=== PATIENT | male | born 1955 | race Caucasian/White ===

== ENCOUNTER 2018-04-18 11:11 | Inpatient (IN) | payer OTHER ==
[~2018-04-18 11:11] MED LIST: PROPOFOL 200 MG INJ
[2018-04-18 12:10] LABS: ADD MAN DIFF? NO
[2018-04-18 12:13] LABS: WHITE BLOOD COUNT 7.6 10^3/ul (4.8-10.8)
[2018-04-18 12:13] LABS: BASOPHILS % 0.4 % (0.0-2.0); EOSINOPHILS % 0.4 % (0.0-7.0); HEMATOCRIT 41.8 % (42.0-52.0); HEMOGLOBIN 14.3 g/dl (14.0-18.0); LYMPHOCYTES # 1.6 10^3/ul (0.8-2.9); LYMPHOCYTES % 20.8 % (15.0-51.0); MEAN CORPUSCULAR HEMOGLOBIN 29.2 pg (29.0-33.0); MEAN CORPUSCULAR HGB CONC 34.2 g/dl (32.0-37.0); MEAN CORPUSCULAR VOLUME 85.3 fl (82.0-101.0); MEAN PLATELET VOLUME 9.1 fl (7.4-10.4); MONOCYTE # 0.7 10^3/ul (0.3-0.9); NEUTROPHIL # 5.3 10^3/ul (1.6-7.5); NEUTROPHILS % 69.1 % (39.0-77.0); PLATELET COUNT 276 10^3/UL (140-415); RED CELL DISTRIBUTION WIDTH 13.8 % (11.5-14.5)
[2018-04-18 12:33] LABS: ALANINE AMINOTRANSFERASE 105 IU/L (13-69); ALBUMIN 3.9 g/dl (3.3-4.9); ALBUMIN/GLOBULIN RATIO 1.21; ALKALINE PHOSPHATASE 110 IU/L (42-121); ANION GAP 14 (8-16); ASPARTATE AMINO TRANSFERASE 106 IU/L (15-46); BILIRUBIN,INDIRECT 0.8 mg/dl (0-1.1); BILIRUBIN,TOTAL 0.8 mg/dl (0.2-1.3); CARBON DIOXIDE 27 mmol/L (21-31); CHLORIDE 97 mmol/L (97-110); GLUCOSE 108 mg/dl (70-220); INR 0.95; PROTIME 12.8 Sec (11.9-14.9); TOTAL PROTEIN 7.1 g/dl (6.1-8.1)
[2018-04-18 12:39] LABS: BLOOD UREA NITROGEN 13 mg/dl (7-20); CALCIUM 9.3 mg/dl (8.4-10.2); CREATININE 0.77 mg/dl (0.61-1.24); POTASSIUM 3.2 mmol/L (3.5-5.1); SODIUM 135 mmol/L (135-144)
[2018-04-18] MEDS: HYDROCODONE/APAP (5/325) TAB PO (12:58)
[2018-04-18 13:05] LABS: PARTIAL THROMBOPLASTIN TIME 24.8 Sec (25.0-35.0)
[2018-04-18] MEDS ORDERED: POLYMYXIN/BACITRACIN 1L IRRIG (13:28)
[2018-04-18] MEDS ORDERED: HYDROmorphONE 2 MG/ML SYG ×2 (13:50→17:23)
[2018-04-18] MEDS ORDERED: LIDOCAINE 2% (SDV) 5 ML INJ (13:58)
[2018-04-18] MEDS ORDERED: MIDAZOLAM 1 MG/ML 2 ML INJ ×2 (13:58→18:13)
[2018-04-18] MEDS ORDERED: PROPOFOL 20 ML (13:58)
[2018-04-18] MEDS ORDERED: PHENYLephrine (100 MCG/ML) 10ML SYG (14:14)
[2018-04-18] MEDS ORDERED: CEFAZOLIN 1 GM INJ (14:29)
[2018-04-18] MEDS ORDERED: SUCCINYLCHOLINE CHLORIDE 100 MG/5 ML SYG IV (14:58)
[2018-04-18] MEDS ORDERED: ROCURONIUM 50 MG INJ ×2 (14:58→16:45)
[2018-04-18] MEDS ORDERED: DEXAMETHASONE 4 MG/ML 1 ML INJ (15:01)
[2018-04-18] MEDS ORDERED: FAMOTIDINE 20 MG INJ (15:01)
[2018-04-18] MEDS ORDERED: ONDANSETRON 4 MG INJ (15:01)
[2018-04-18] MEDS ORDERED: hydrALAzine 20 MG INJ (15:14)
[2018-04-18] MEDS ORDERED: POTASSIUM CHLORIDE 50 ML (15:43)
[2018-04-18] MEDS: LIDOCAINE 1%/EPI 30 ML INJ (15:48)
[2018-04-18] MEDS: THROMBIN 5000 UNIT VIAL (15:49)
[2018-04-18] MEDS ORDERED: PROCHLORPERAZINE 10 MG INJ IV (16:00)
[2018-04-18] MEDS ORDERED: MEPERIDINE 25 MG INJ IV (16:00)
[2018-04-18] MEDS ORDERED: hydrALAzine 20 MG INJ IV (16:00)
[2018-04-18] MEDS ORDERED: HYDROmorphONE 1 MG/5 ML IV SYRINGE IV ×3 (16:00)
[2018-04-18] MEDS ORDERED: ONDANSETRON 4 MG INJ IV ×2 (16:00→18:00)
[2018-04-18] MEDS ORDERED: LABETALOL HCL 20MG INJ IV (16:00)
[2018-04-18] MEDS ORDERED: DIPHENHYDRAMINE 50 MG INJ IV (16:00)
[2018-04-18] MEDS ORDERED: FENTAnyl 50 MCG/ML VIAL IV ×2 (16:00)
[2018-04-18] MEDS ORDERED: ACETAMINOPHEN 1000MG/100ML IV 100 ML (16:07)
[2018-04-18] MEDS: GELATIN SIZE 100 SPONGE (16:20)
[2018-04-18] MEDS ORDERED: THROMBIN 5000 UNIT VIAL ×2 (16:37→16:40)
[2018-04-18] MEDS ORDERED: GELATIN SIZE 100 SPONGE (16:40)
[2018-04-18] MEDS: THROMBIN 5000 UNIT VIAL TOP (16:45)
[2018-04-18] MEDS ORDERED: ALBUMIN HUMAN 5% 250 ML (16:53)
[2018-04-18] MEDS ORDERED: SUGAMMADEX SODIUM 200 MG/2 ML VIAL IV (16:55)
[2018-04-18] MEDS ORDERED: FENTAnyl 50 MCG/ML VIAL (17:49)
[2018-04-18] MEDS: morphine 2 MG INJ IV (18:00)
[2018-04-18] MEDS ORDERED: niCARdipine 50 MG in SOD CHLORIDE 0.9% 480 ML IV (18:00)
[2018-04-18] MEDS ORDERED: morphine 2 MG INJ IV (18:00)
[2018-04-18] MEDS: DEXTROSE 5%-LR 1,000 ML IV (18:25)
[2018-04-18] MEDS ORDERED: ALBUTEROL HFA 8 GM INHALER INH (18:30)
[2018-04-18] MEDS: HYDROmorphONE 1 MG/ML SYG IV ×3 (18:59→23:24)
[2018-04-18] MEDS: HALOPERIDOL 5 MG INJ IV (19:00)
[2018-04-18 19:01] LABS: ADD MAN DIFF? NO
[2018-04-18 19:02] LABS: WHITE BLOOD COUNT 18.9 10^3/ul (4.8-10.8)
[2018-04-18 19:02] LABS: BASOPHILS % 0.2 % (0.0-2.0); HEMATOCRIT 35.6 % (42.0-52.0); HEMOGLOBIN 11.7 g/dl (14.0-18.0); LYMPHOCYTES # 1.4 10^3/ul (0.8-2.9); LYMPHOCYTES % 7.5 % (15.0-51.0); MEAN CORPUSCULAR HGB CONC 32.9 g/dl (32.0-37.0); MEAN CORPUSCULAR VOLUME 88.1 fl (82.0-101.0); MEAN PLATELET VOLUME 9.1 fl (7.4-10.4); MONOCYTE # 0.5 10^3/ul (0.3-0.9); MONOCYTES % 2.8 % (0.0-11.0); NEUTROPHIL # 16.8 10^3/ul (1.6-7.5); PLATELET COUNT 326 10^3/UL (140-415); RED BLOOD COUNT 4.04 10^6/ul (4.70-6.10); RED CELL DISTRIBUTION WIDTH 14.1 % (11.5-14.5)
[2018-04-18 19:22] LABS: ANION GAP 13 (8-16); BLOOD UREA NITROGEN 14 mg/dl (7-20); CARBON DIOXIDE 24 mmol/L (21-31); CHLORIDE 101 mmol/L (97-110); CREATININE 0.82 mg/dl (0.61-1.24); GLUCOSE 238 mg/dl (70-220); POTASSIUM 3.8 mmol/L (3.5-5.1); SODIUM 134 mmol/L (135-144)
[2018-04-18 19:23] LABS: INR 1.02; PROTIME 13.5 Sec (11.9-14.9); PT RATIO 1.1
[2018-04-18 19:33] LABS: CALCIUM 8.3 mg/dl (8.4-10.2)
[2018-04-18] MEDS: FENTAnyl 50 MCG/ML VIAL IV (19:51)
[2018-04-18] MEDS: MIDAZOLAM 1 MG/ML 2 ML INJ IV (19:51)
[2018-04-18] MEDS: DOCUSATE SODIUM 100 MG CAP PO (20:30)
[2018-04-18] MEDS: ATORVASTATIN 10 MG TAB PO (20:30)
[2018-04-18] MEDS: oxyCODONE (CR) 20 MG TAB [oxyCONTIN] PO (20:31)
[2018-04-18] MEDS: ENALAPRIL 10 MG TAB PO (20:31)
[2018-04-18] MEDS: HYDROCODONE/APAP (10/325) TAB PO (21:28)
[2018-04-18] MEDS: CEFAZOLIN 1 GM/50 ML (PMX) 50 ML IVPB (21:32)
[2018-04-19] MEDS: DEXTROSE 5%-LR 1,000 ML IV ×3 (00:25→14:44)
[2018-04-19] MEDS: HYDROCODONE/APAP (10/325) TAB PO ×4 (01:31→23:25)
[2018-04-19] MEDS: HYDROmorphONE 1 MG/ML SYG IV ×8 (02:28→20:22)
[2018-04-19] MEDS: CEFAZOLIN 1 GM/50 ML (PMX) 50 ML IVPB ×3 (05:15→21:48)
[2018-04-19] MEDS: DOCUSATE SODIUM 100 MG CAP PO ×3 (08:49→20:56)
[2018-04-19] MEDS: oxyCODONE (CR) 20 MG TAB [oxyCONTIN] PO ×2 (08:51→20:54)
[2018-04-19] MEDS: ENALAPRIL 10 MG TAB PO ×2 (08:51→20:53)
[2018-04-19] MEDS ORDERED: FLURAZEPAM PO (10:30)
[2018-04-19] MEDS: LORAZEPAM 1 MG TAB PO (11:07)
[2018-04-19] MEDS: CYCLOBENZAPRINE 10 MG TAB PO ×2 (13:14→21:48)
[2018-04-19] MEDS: ATORVASTATIN 10 MG TAB PO (20:53)
[2018-04-20] MEDS: DEXTROSE 5%-LR 1,000 ML IV ×5 (01:31→22:15)
[2018-04-20] MEDS: CEFAZOLIN 1 GM/50 ML (PMX) 50 ML IVPB ×3 (05:36→22:13)
[2018-04-20] MEDS: HYDROmorphONE 1 MG/ML SYG IV ×3 (05:39→15:07)
[2018-04-20] MEDS: HYDROCODONE/APAP (10/325) TAB PO (07:48)
[2018-04-20] MEDS: CYCLOBENZAPRINE 10 MG TAB PO ×3 (08:30→20:22)
[2018-04-20] MEDS: DOCUSATE SODIUM 100 MG CAP PO ×2 (08:30→20:22)
[2018-04-20] MEDS: ENALAPRIL 10 MG TAB PO ×4 (08:30→22:14)
[2018-04-20] MEDS: oxyCODONE (CR) 20 MG TAB [oxyCONTIN] PO ×2 (08:31→20:23)
[2018-04-20 10:35] LABS: HEMATOCRIT 29.9 % (42.0-52.0); HEMOGLOBIN 9.6 g/dl (14.0-18.0)
[2018-04-20] MEDS: ATORVASTATIN 10 MG TAB PO (20:22)
[2018-04-21] MEDS: LORAZEPAM 1 MG TAB PO ×2 (00:19→21:55)
[2018-04-21] MEDS: HYDROCODONE/APAP (10/325) TAB PO ×3 (00:19→21:20)
[2018-04-21] MEDS: DEXTROSE 5%-LR 1,000 ML IV ×3 (07:04→21:17)
[2018-04-21] MEDS: oxyCODONE (CR) 20 MG TAB [oxyCONTIN] PO ×2 (09:00→21:55)
[2018-04-21] MEDS: CYCLOBENZAPRINE 10 MG TAB PO ×3 (09:22→21:55)
[2018-04-21] MEDS: HYDROmorphONE 1 MG/ML SYG IV ×4 (09:22→22:50)
[2018-04-21] MEDS: ENALAPRIL 10 MG TAB PO ×2 (09:22→21:19)
[2018-04-21] MEDS: DOCUSATE SODIUM 100 MG CAP PO ×2 (09:23→21:17)
[2018-04-21] MEDS: ATORVASTATIN 10 MG TAB PO (21:17)
[2018-04-22] MEDS: HYDROmorphONE 1 MG/ML SYG IV ×6 (01:10→22:49)
[2018-04-22] MEDS: DEXTROSE 5%-LR 1,000 ML IV ×4 (03:58→22:59)
[2018-04-22] MEDS: oxyCODONE (CR) 20 MG TAB [oxyCONTIN] PO ×2 (08:20→20:43)
[2018-04-22] MEDS: DOCUSATE SODIUM 100 MG CAP PO ×2 (08:21→20:42)
[2018-04-22] MEDS: CYCLOBENZAPRINE 10 MG TAB PO ×3 (08:22→20:46)
[2018-04-22] MEDS: ENALAPRIL 10 MG TAB PO ×2 (08:22→22:55)
[2018-04-22] MEDS: ATORVASTATIN 10 MG TAB PO (20:42)
[2018-04-22] MEDS: HYDROmorphONE 4 MG TAB PO (20:44)
[2018-04-22] MEDS: LORAZEPAM 1 MG TAB PO (22:54)
[2018-04-23] MEDS: DEXTROSE 5%-LR 1,000 ML IV ×3 (01:36→17:54)
[2018-04-23] MEDS: HYDROmorphONE 1 MG/ML SYG IV ×4 (05:50→22:24)
[2018-04-23 06:33] LABS: ADD MAN DIFF? NO
[2018-04-23 06:39] LABS: WHITE BLOOD COUNT 7.7 10^3/ul (4.8-10.8)
[2018-04-23 06:39] LABS: BASOPHILS % 0.3 % (0.0-2.0); EOSINOPHILS # 0.2 10^3/ul (0.0-0.5); EOSINOPHILS % 2.7 % (0.0-7.0); HEMATOCRIT 27.4 % (42.0-52.0); HEMOGLOBIN 9.2 g/dl (14.0-18.0); LYMPHOCYTES # 1.5 10^3/ul (0.8-2.9); LYMPHOCYTES % 19.1 % (15.0-51.0); MEAN CORPUSCULAR HEMOGLOBIN 29.8 pg (29.0-33.0); MEAN CORPUSCULAR HGB CONC 33.6 g/dl (32.0-37.0); MEAN CORPUSCULAR VOLUME 88.7 fl (82.0-101.0); MEAN PLATELET VOLUME 9.2 fl (7.4-10.4); MONOCYTE # 0.7 10^3/ul (0.3-0.9); MONOCYTES % 9.5 % (0.0-11.0); NEUTROPHIL # 5.3 10^3/ul (1.6-7.5); NEUTROPHILS % 68.1 % (39.0-77.0); PLATELET COUNT 262 10^3/UL (140-415); RED BLOOD COUNT 3.09 10^6/ul (4.70-6.10); RED CELL DISTRIBUTION WIDTH 13.8 % (11.5-14.5)
[2018-04-23 07:18] LABS: ANION GAP 11 (8-16); BLOOD UREA NITROGEN 8 mg/dl (7-20); CALCIUM 8.2 mg/dl (8.4-10.2); CARBON DIOXIDE 29 mmol/L (21-31); CHLORIDE 102 mmol/L (97-110); GLUCOSE 118 mg/dl (70-220); POTASSIUM 3.9 mmol/L (3.5-5.1); SODIUM 138 mmol/L (135-144)
[2018-04-23 07:36] LABS: ADD MAN DIFF? NO
[2018-04-23 07:39] LABS: WHITE BLOOD COUNT 7.4 10^3/ul (4.8-10.8)
[2018-04-23 07:39] LABS: BASOPHILS % 0.1 % (0.0-2.0); EOSINOPHILS # 0.2 10^3/ul (0.0-0.5); EOSINOPHILS % 2.6 % (0.0-7.0); HEMATOCRIT 27.1 % (42.0-52.0); LYMPHOCYTES # 1.3 10^3/ul (0.8-2.9); LYMPHOCYTES % 17.5 % (15.0-51.0); MEAN CORPUSCULAR HEMOGLOBIN 29.5 pg (29.0-33.0); MEAN CORPUSCULAR HGB CONC 33.2 g/dl (32.0-37.0); MEAN CORPUSCULAR VOLUME 88.9 fl (82.0-101.0); MEAN PLATELET VOLUME 9.1 fl (7.4-10.4); MONOCYTE # 0.7 10^3/ul (0.3-0.9); MONOCYTES % 8.9 % (0.0-11.0); NEUTROPHIL # 5.3 10^3/ul (1.6-7.5); NEUTROPHILS % 70.6 % (39.0-77.0); PLATELET COUNT 253 10^3/UL (140-415); RED BLOOD COUNT 3.05 10^6/ul (4.70-6.10); RED CELL DISTRIBUTION WIDTH 14.1 % (11.5-14.5)
[2018-04-23] MEDS: DOCUSATE SODIUM 100 MG CAP PO ×2 (08:18→20:51)
[2018-04-23] MEDS: CYCLOBENZAPRINE 10 MG TAB PO ×3 (08:18→20:52)
[2018-04-23] MEDS: oxyCODONE (CR) 20 MG TAB [oxyCONTIN] PO ×2 (08:18→20:52)
[2018-04-23] MEDS: ENALAPRIL 10 MG TAB PO ×2 (08:19→20:51)
[2018-04-23] MEDS: SENNA/DOCUSATE NA (8.6MG/50MG) TAB PO (17:53)
[2018-04-23] MEDS: ATORVASTATIN 10 MG TAB PO (20:51)
[2018-04-24] MEDS: HYDROmorphONE 4 MG TAB PO ×5 (01:01→21:23)
[2018-04-24] MEDS: DEXTROSE 5%-LR 1,000 ML IV ×3 (01:03→10:24)
[2018-04-24] MEDS: HYDROmorphONE 1 MG/ML SYG IV ×6 (02:34→22:33)
[2018-04-24] MEDS: SENNA/DOCUSATE NA (8.6MG/50MG) TAB PO ×2 (07:55→18:24)
[2018-04-24] MEDS: oxyCODONE (CR) 20 MG TAB [oxyCONTIN] PO ×2 (09:00→22:33)
[2018-04-24] MEDS: ENALAPRIL 10 MG TAB PO ×2 (09:06→21:00)
[2018-04-24] MEDS: CYCLOBENZAPRINE 10 MG TAB PO ×3 (09:06→21:22)
[2018-04-24] MEDS: DOCUSATE SODIUM 100 MG CAP PO ×2 (09:06→21:20)
[2018-04-24] MEDS: ATORVASTATIN 10 MG TAB PO (21:21)
[2018-04-24] MEDS: METOPROLOL 25 MG TAB PO (21:24)
[2018-04-25] MEDS: HYDROmorphONE 4 MG TAB PO (01:28)
[2018-04-25] MEDS: HYDROmorphONE 1 MG/ML SYG IV ×5 (03:31→22:18)
[2018-04-25] MEDS: METOPROLOL 25 MG TAB PO ×2 (08:36→20:52)
[2018-04-25] MEDS: CYCLOBENZAPRINE 10 MG TAB PO ×3 (08:36→20:52)
[2018-04-25] MEDS: SENNA/DOCUSATE NA (8.6MG/50MG) TAB PO ×2 (08:37→18:19)
[2018-04-25] MEDS: DOCUSATE SODIUM 100 MG CAP PO ×2 (08:37→20:52)
[2018-04-25] MEDS: ENALAPRIL 10 MG TAB PO ×2 (08:37→20:55)
[2018-04-25 09:12] LABS: ADD MAN DIFF? NO
[2018-04-25 09:15] LABS: BASOPHILS % 0.3 % (0.0-2.0); EOSINOPHILS # 0.3 10^3/ul (0.0-0.5); EOSINOPHILS % 3.2 % (0.0-7.0); HEMATOCRIT 30.3 % (42.0-52.0); LYMPHOCYTES % 19.3 % (15.0-51.0); MEAN CORPUSCULAR HEMOGLOBIN 29.5 pg (29.0-33.0); MEAN CORPUSCULAR VOLUME 89.4 fl (82.0-101.0); MONOCYTES % 9.9 % (0.0-11.0); NEUTROPHILS % 66.8 % (39.0-77.0); PLATELET COUNT 375 10^3/UL (140-415); RED BLOOD COUNT 3.39 10^6/ul (4.70-6.10); RED CELL DISTRIBUTION WIDTH 14.3 % (11.5-14.5)
[2018-04-25 09:15] LABS: WHITE BLOOD COUNT 10.5 10^3/ul (4.8-10.8)
[2018-04-25 09:58] LABS: ANION GAP 12 (8-16); BLOOD UREA NITROGEN 7 mg/dl (7-20); CALCIUM 8.4 mg/dl (8.4-10.2); CARBON DIOXIDE 29 mmol/L (21-31); CHLORIDE 100 mmol/L (97-110); CREATININE 0.66 mg/dl (0.61-1.24); GLUCOSE 100 mg/dl (70-220); POTASSIUM 4.1 mmol/L (3.5-5.1); SODIUM 137 mmol/L (135-144)
[2018-04-25] MEDS: oxyCODONE (CR) 20 MG TAB [oxyCONTIN] PO ×2 (09:58→20:56)
[2018-04-25] MEDS: ATORVASTATIN 10 MG TAB PO (20:51)
[2018-04-25] MEDS: LORAZEPAM 1 MG TAB PO (22:23)
[2018-04-26] MEDS: HYDROmorphONE 1 MG/ML SYG IV ×5 (02:16→19:52)
[2018-04-26 07:13] LABS: ADD MAN DIFF? NO
[2018-04-26 07:16] LABS: BASOPHILS % 0.2 % (0.0-2.0); EOSINOPHILS # 0.3 10^3/ul (0.0-0.5); EOSINOPHILS % 3.2 % (0.0-7.0); HEMATOCRIT 26.3 % (42.0-52.0); HEMOGLOBIN 8.8 g/dl (14.0-18.0); LYMPHOCYTES # 1.7 10^3/ul (0.8-2.9); LYMPHOCYTES % 20.8 % (15.0-51.0); MEAN CORPUSCULAR HEMOGLOBIN 29.5 pg (29.0-33.0); MEAN CORPUSCULAR HGB CONC 33.5 g/dl (32.0-37.0); MEAN CORPUSCULAR VOLUME 88.3 fl (82.0-101.0); MONOCYTE # 0.7 10^3/ul (0.3-0.9); MONOCYTES % 8.8 % (0.0-11.0); NEUTROPHIL # 5.4 10^3/ul (1.6-7.5); NEUTROPHILS % 66.1 % (39.0-77.0); PLATELET COUNT 313 10^3/UL (140-415); RED BLOOD COUNT 2.98 10^6/ul (4.70-6.10); RED CELL DISTRIBUTION WIDTH 14.4 % (11.5-14.5)
[2018-04-26 07:16] LABS: WHITE BLOOD COUNT 8.2 10^3/ul (4.8-10.8)
[2018-04-26 07:39] LABS: ANION GAP 12 (8-16); BLOOD UREA NITROGEN 11 mg/dl (7-20); CALCIUM 8.1 mg/dl (8.4-10.2); CARBON DIOXIDE 29 mmol/L (21-31); CHLORIDE 99 mmol/L (97-110); CREATININE 0.74 mg/dl (0.61-1.24); GLUCOSE 103 mg/dl (70-220); POTASSIUM 3.7 mmol/L (3.5-5.1); SODIUM 136 mmol/L (135-144)
[2018-04-26] MEDS: CYCLOBENZAPRINE 10 MG TAB PO ×3 (09:04→21:08)
[2018-04-26] MEDS: SENNA/DOCUSATE NA (8.6MG/50MG) TAB PO ×2 (09:04→18:37)
[2018-04-26] MEDS: DOCUSATE SODIUM 100 MG CAP PO ×2 (09:04→21:07)
[2018-04-26] MEDS: oxyCODONE (CR) 20 MG TAB [oxyCONTIN] PO ×2 (09:05→21:08)
[2018-04-26] MEDS: METOPROLOL 25 MG TAB PO ×2 (09:07→21:00)
[2018-04-26] MEDS: ENALAPRIL 5 MG TAB PO ×2 (09:28→21:09)
[2018-04-26] MEDS: FERROUS SULFATE (EC) 325 MG TAB PO (10:47)
[2018-04-26] MEDS: MAGNESIUM HYDROXIDE 30ML CUP PO (19:52)
[2018-04-26] MEDS: ATORVASTATIN 10 MG TAB PO (21:10)
[2018-04-26] MEDS: HYDROmorphONE 4 MG TAB PO (22:08)
[2018-04-26] MEDS: LORAZEPAM 1 MG TAB PO (22:08)
[2018-04-27] MEDS: HYDROmorphONE 1 MG/ML SYG IV ×2 (01:11→08:29)
[2018-04-27] MEDS: LORAZEPAM 1 MG TAB PO (03:24)
[2018-04-27] MEDS: HYDROmorphONE 4 MG TAB PO ×3 (03:24→18:10)
[2018-04-27] MEDS: oxyCODONE (CR) 20 MG TAB [oxyCONTIN] PO ×2 (08:29→21:39)
[2018-04-27] MEDS: CYCLOBENZAPRINE 10 MG TAB PO ×3 (08:29→21:39)
[2018-04-27] MEDS: SENNA/DOCUSATE NA (8.6MG/50MG) TAB PO ×2 (08:30→21:40)
[2018-04-27] MEDS: DOCUSATE SODIUM 100 MG CAP PO ×2 (08:30→21:41)
[2018-04-27] MEDS: FERROUS SULFATE (EC) 325 MG TAB PO (08:30)
[2018-04-27] MEDS: METOPROLOL 25 MG TAB PO ×2 (08:31→21:40)
[2018-04-27] MEDS: ENALAPRIL 5 MG TAB PO ×2 (08:32→21:39)
[2018-04-27] MEDS: DIPHENHYDRAMINE 50 MG INJ IV ×3 (12:03→23:15)
[2018-04-27] MEDS ORDERED: VANCOMYCIN IV PER PHARMACY XX (14:30)
[2018-04-27] MEDS ORDERED: CEFEPIME 1GM/50 ML (PMX) 50 ML IVPB (16:00)
[2018-04-27] MEDS: VANCOMYCIN 2 GM in SOD CHLORIDE 0.9% 500 ML IVPB (16:15)
[2018-04-27] MEDS: ATORVASTATIN 10 MG TAB PO (21:40)
[2018-04-27] MEDS: CEFEPIME 1GM/50 ML (PMX) 50 ML IVPB (21:41)
[2018-04-27] MEDS: HYDROCORTISONE 100 MG INJ IV (23:14)
[2018-04-28] MEDS ORDERED: VANCOMYCIN 1.25 GM in SOD CHLORIDE 0.9% 250 ML IVPB (01:00)
[2018-04-28 06:48] LABS: ALANINE AMINOTRANSFERASE 35 IU/L (13-69); ALBUMIN 2.9 g/dl (3.3-4.9); ALKALINE PHOSPHATASE 102 IU/L (42-121); ANION GAP 11 (8-16); ASPARTATE AMINO TRANSFERASE 20 IU/L (15-46); BILIRUBIN,INDIRECT 0.4 mg/dl (0-1.1); BILIRUBIN,TOTAL 0.4 mg/dl (0.2-1.3); BLOOD UREA NITROGEN 12 mg/dl (7-20); CALCIUM 8.2 mg/dl (8.4-10.2); CARBON DIOXIDE 28 mmol/L (21-31); CHLORIDE 101 mmol/L (97-110); CREATININE 0.68 mg/dl (0.61-1.24); GLUCOSE 140 mg/dl (70-220); POTASSIUM 4.5 mmol/L (3.5-5.1); SODIUM 135 mmol/L (135-144); TOTAL PROTEIN 5.8 g/dl (6.1-8.1)
[2018-04-28] MEDS: CYCLOBENZAPRINE 10 MG TAB PO ×3 (08:47→21:02)
[2018-04-28] MEDS: DIPHENHYDRAMINE 50 MG INJ IV (08:47)
[2018-04-28] MEDS: FERROUS SULFATE (EC) 325 MG TAB PO (08:47)
[2018-04-28] MEDS: SENNA/DOCUSATE NA (8.6MG/50MG) TAB PO ×2 (08:48→21:01)
[2018-04-28] MEDS: oxyCODONE (CR) 20 MG TAB [oxyCONTIN] PO ×2 (08:49→21:03)
[2018-04-28] MEDS: ENALAPRIL 5 MG TAB PO ×2 (08:49→21:02)
[2018-04-28] MEDS: METOPROLOL 25 MG TAB PO ×2 (08:51→21:03)
[2018-04-28] MEDS: DOCUSATE SODIUM 100 MG CAP PO ×2 (08:52→21:02)
[2018-04-28] MEDS: HYDROmorphONE 4 MG TAB PO ×3 (12:20→22:39)
[2018-04-28] MEDS: LORATADINE 10 MG TAB PO (14:58)
[2018-04-28 15:10] LABS: ADD MAN DIFF? NO
[2018-04-28 15:15] LABS: BASOPHILS % 0.3 % (0.0-2.0); EOSINOPHILS # 0.5 10^3/ul (0.0-0.5); EOSINOPHILS % 4.7 % (0.0-7.0); HEMATOCRIT 31.2 % (42.0-52.0); HEMOGLOBIN 10.2 g/dl (14.0-18.0); LYMPHOCYTES # 1.8 10^3/ul (0.8-2.9); LYMPHOCYTES % 18.8 % (15.0-51.0); MEAN CORPUSCULAR HEMOGLOBIN 29.4 pg (29.0-33.0); MEAN CORPUSCULAR HGB CONC 32.7 g/dl (32.0-37.0); MEAN CORPUSCULAR VOLUME 89.9 fl (82.0-101.0); MEAN PLATELET VOLUME 8.6 fl (7.4-10.4); MONOCYTE # 0.7 10^3/ul (0.3-0.9); MONOCYTES % 7.6 % (0.0-11.0); NEUTROPHIL # 6.5 10^3/ul (1.6-7.5); NEUTROPHILS % 68.2 % (39.0-77.0); PLATELET COUNT 428 10^3/UL (140-415); RED BLOOD COUNT 3.47 10^6/ul (4.70-6.10); RED CELL DISTRIBUTION WIDTH 14.5 % (11.5-14.5)
[2018-04-28 15:15] LABS: WHITE BLOOD COUNT 9.6 10^3/ul (4.8-10.8)
[2018-04-28] MEDS: ATORVASTATIN 10 MG TAB PO (21:02)
[2018-04-28] MEDS: DIPHENHYDRAMINE 25 MG CAP PO (21:06)
[2018-04-28] MEDS: LORAZEPAM 1 MG TAB PO (21:57)
[2018-04-29] MEDS: HYDROmorphONE 4 MG TAB PO ×3 (04:40→14:50)
[2018-04-29 05:12] LABS: ADD MAN DIFF? NO
[2018-04-29 05:19] LABS: BASOPHILS % 0.5 % (0.0-2.0); EOSINOPHILS # 0.5 10^3/ul (0.0-0.5); EOSINOPHILS % 5.9 % (0.0-7.0); HEMATOCRIT 29.3 % (42.0-52.0); HEMOGLOBIN 9.6 g/dl (14.0-18.0); LYMPHOCYTES # 1.8 10^3/ul (0.8-2.9); LYMPHOCYTES % 23.4 % (15.0-51.0); MEAN CORPUSCULAR HEMOGLOBIN 29.2 pg (29.0-33.0); MEAN CORPUSCULAR HGB CONC 32.8 g/dl (32.0-37.0); MEAN CORPUSCULAR VOLUME 89.1 fl (82.0-101.0); MEAN PLATELET VOLUME 8.7 fl (7.4-10.4); MONOCYTE # 0.6 10^3/ul (0.3-0.9); MONOCYTES % 8.1 % (0.0-11.0); NEUTROPHIL # 4.8 10^3/ul (1.6-7.5); NEUTROPHILS % 61.5 % (39.0-77.0); PLATELET COUNT 390 10^3/UL (140-415); RED BLOOD COUNT 3.29 10^6/ul (4.70-6.10); RED CELL DISTRIBUTION WIDTH 14.4 % (11.5-14.5)
[2018-04-29 05:19] LABS: WHITE BLOOD COUNT 7.9 10^3/ul (4.8-10.8)
[2018-04-29 05:50] LABS: ANION GAP 9 (8-16); BLOOD UREA NITROGEN 12 mg/dl (7-20); CARBON DIOXIDE 29 mmol/L (21-31); CHLORIDE 103 mmol/L (97-110); GLUCOSE 94 mg/dl (70-220); SODIUM 137 mmol/L (135-144)
[2018-04-29] MEDS: DIPHENHYDRAMINE 25 MG CAP PO ×2 (08:44→17:59)
[2018-04-29] MEDS: CYCLOBENZAPRINE 10 MG TAB PO ×3 (08:46→21:36)
[2018-04-29] MEDS: LORATADINE 10 MG TAB PO (08:46)
[2018-04-29] MEDS: SENNA/DOCUSATE NA (8.6MG/50MG) TAB PO ×2 (08:46→21:36)
[2018-04-29] MEDS: FERROUS SULFATE (EC) 325 MG TAB PO (08:46)
[2018-04-29] MEDS: ENALAPRIL 5 MG TAB PO ×2 (08:47→21:37)
[2018-04-29] MEDS: DOCUSATE SODIUM 100 MG CAP PO ×2 (08:47→21:35)
[2018-04-29] MEDS: METOPROLOL 25 MG TAB PO ×2 (08:48→21:38)
[2018-04-29] MEDS: oxyCODONE (CR) 20 MG TAB [oxyCONTIN] PO ×2 (11:00→21:36)
[2018-04-29] MEDS: TRIMETHOPRIM/SULFAMETHOX (DS) TAB PO ×2 (12:24→21:36)
[2018-04-29] MEDS: MAGNESIUM HYDROXIDE 30ML CUP PO (13:09)
[2018-04-29] MEDS: SODIUM HYPOCHLORITE 0.125% 473 ML BTL IRR ×2 (15:00→21:34)
[2018-04-29] MEDS: ATORVASTATIN 10 MG TAB PO (21:35)
[2018-04-29] MEDS: MUPIROCIN 2% 22 GM OINT TOP (21:35)
[2018-04-29] MEDS: LORAZEPAM 1 MG TAB PO (23:11)
[2018-04-30] MEDS: HYDROmorphONE 4 MG TAB PO ×5 (03:15→23:33)
[2018-04-30] MEDS: LORAZEPAM 1 MG TAB PO ×2 (05:27→23:33)
[2018-04-30 06:08] LABS: ADD MAN DIFF? NO
[2018-04-30 06:11] LABS: WHITE BLOOD COUNT 7.9 10^3/ul (4.8-10.8)
[2018-04-30 06:11] LABS: BASOPHILS % 0.4 % (0.0-2.0); EOSINOPHILS # 0.5 10^3/ul (0.0-0.5); EOSINOPHILS % 6.3 % (0.0-7.0); HEMATOCRIT 27.3 % (42.0-52.0); LYMPHOCYTES # 1.9 10^3/ul (0.8-2.9); LYMPHOCYTES % 23.9 % (15.0-51.0); MEAN CORPUSCULAR HEMOGLOBIN 29.3 pg (29.0-33.0); MEAN CORPUSCULAR VOLUME 88.9 fl (82.0-101.0); MEAN PLATELET VOLUME 8.8 fl (7.4-10.4); MONOCYTE # 0.7 10^3/ul (0.3-0.9); MONOCYTES % 8.7 % (0.0-11.0); NEUTROPHIL # 4.8 10^3/ul (1.6-7.5); NEUTROPHILS % 60.1 % (39.0-77.0); PLATELET COUNT 356 10^3/UL (140-415); RED BLOOD COUNT 3.07 10^6/ul (4.70-6.10); RED CELL DISTRIBUTION WIDTH 14.5 % (11.5-14.5)
[2018-04-30 06:56] LABS: ANION GAP 12 (8-16); BLOOD UREA NITROGEN 11 mg/dl (7-20); CALCIUM 7.8 mg/dl (8.4-10.2); CARBON DIOXIDE 30 mmol/L (21-31); CHLORIDE 98 mmol/L (97-110); CREATININE 0.81 mg/dl (0.61-1.24); GLUCOSE 118 mg/dl (70-220); POTASSIUM 3.8 mmol/L (3.5-5.1); SODIUM 136 mmol/L (135-144)
[2018-04-30] MEDS: SODIUM HYPOCHLORITE 0.125% 473 ML BTL IRR (09:04)
[2018-04-30] MEDS: MUPIROCIN 2% 22 GM OINT TOP ×2 (09:04→21:09)
[2018-04-30] MEDS: DOCUSATE SODIUM 100 MG CAP PO ×2 (09:06→21:04)
[2018-04-30] MEDS: FERROUS SULFATE (EC) 325 MG TAB PO (09:07)
[2018-04-30] MEDS: CYCLOBENZAPRINE 10 MG TAB PO ×3 (09:07→21:07)
[2018-04-30] MEDS: oxyCODONE (CR) 20 MG TAB [oxyCONTIN] PO ×2 (09:07→21:09)
[2018-04-30] MEDS: TRIMETHOPRIM/SULFAMETHOX (DS) TAB PO ×2 (09:07→21:04)
[2018-04-30] MEDS: SENNA/DOCUSATE NA (8.6MG/50MG) TAB PO ×2 (09:07→21:04)
[2018-04-30] MEDS: LORATADINE 10 MG TAB PO (09:07)
[2018-04-30] MEDS: ENALAPRIL 5 MG TAB PO ×2 (09:08→21:07)
[2018-04-30] MEDS: METOPROLOL 25 MG TAB PO ×2 (09:08→21:06)
[2018-04-30] MEDS: DIPHENHYDRAMINE 25 MG CAP PO (17:37)
[2018-04-30] MEDS: ATORVASTATIN 10 MG TAB PO (21:06)
[2018-05-01] MEDS: NA PHOSPHATE/BIPHOS 133 ML ENEMA PR (00:11)
[2018-05-01] MEDS: HYDROCODONE/APAP (10/325) TAB PO ×5 (02:57→23:06)
[2018-05-01] MEDS: HYDROmorphONE 4 MG TAB PO ×2 (06:00→14:41)
[2018-05-01] MEDS: LORAZEPAM 1 MG TAB PO ×2 (06:00→23:06)
[2018-05-01] MEDS: FERROUS SULFATE (EC) 325 MG TAB PO (08:36)
[2018-05-01] MEDS: SENNA/DOCUSATE NA (8.6MG/50MG) TAB PO ×2 (08:36→21:21)
[2018-05-01] MEDS: DOCUSATE SODIUM 100 MG CAP PO ×2 (08:36→21:20)
[2018-05-01] MEDS: METOPROLOL 25 MG TAB PO ×2 (08:36→21:24)
[2018-05-01] MEDS: CYCLOBENZAPRINE 10 MG TAB PO ×3 (08:36→21:25)
[2018-05-01] MEDS: LORATADINE 10 MG TAB PO (08:36)
[2018-05-01] MEDS: TRIMETHOPRIM/SULFAMETHOX (DS) TAB PO ×2 (08:36→21:24)
[2018-05-01] MEDS: ENALAPRIL 5 MG TAB PO ×2 (08:37→21:24)
[2018-05-01] MEDS: oxyCODONE (CR) 20 MG TAB [oxyCONTIN] PO ×2 (08:37→21:25)
[2018-05-01] MEDS: SODIUM HYPOCHLORITE 0.125% 473 ML BTL IRR (08:37)
[2018-05-01] MEDS: MUPIROCIN 2% 22 GM OINT TOP ×2 (08:38→21:28)
[2018-05-01] MEDS: ATORVASTATIN 10 MG TAB PO (21:25)
[2018-05-02] MEDS: LORAZEPAM 1 MG TAB PO ×2 (03:23→22:17)
[2018-05-02] MEDS: HYDROCODONE/APAP (10/325) TAB PO ×5 (03:23→22:16)
[2018-05-02] MEDS: oxyCODONE (CR) 20 MG TAB [oxyCONTIN] PO ×3 (09:37→20:52)
[2018-05-02] MEDS: SENNA/DOCUSATE NA (8.6MG/50MG) TAB PO ×2 (09:37→20:52)
[2018-05-02] MEDS: METOPROLOL 25 MG TAB PO ×3 (09:38→20:52)
[2018-05-02] MEDS: DOCUSATE SODIUM 100 MG CAP PO ×2 (09:38→20:51)
[2018-05-02] MEDS: CYCLOBENZAPRINE 10 MG TAB PO ×3 (09:38→20:51)
[2018-05-02] MEDS: LORATADINE 10 MG TAB PO (09:38)
[2018-05-02] MEDS: TRIMETHOPRIM/SULFAMETHOX (DS) TAB PO ×2 (09:38→20:50)
[2018-05-02] MEDS: FERROUS SULFATE (EC) 325 MG TAB PO (09:38)
[2018-05-02] MEDS: MUPIROCIN 2% 22 GM OINT TOP ×2 (12:14→20:52)
[2018-05-02] MEDS: ENALAPRIL 5 MG TAB PO ×2 (12:14→20:52)
[2018-05-02] MEDS: SODIUM HYPOCHLORITE 0.125% 473 ML BTL IRR (12:26)
[2018-05-02] MEDS: ATORVASTATIN 10 MG TAB PO (20:51)
[2018-05-02] MEDS: HYDROmorphONE 4 MG TAB PO (20:53)
[2018-05-03] MEDS: HYDROmorphONE 4 MG TAB PO ×3 (03:42→22:13)
[2018-05-03 06:58] LABS: CREATININE 0.98 mg/dl (0.61-1.24)
[2018-05-03 06:58] LABS: BLOOD UREA NITROGEN 13 mg/dl (7-20)
[2018-05-03] MEDS: TRIMETHOPRIM/SULFAMETHOX (DS) TAB PO ×2 (07:49→20:33)
[2018-05-03] MEDS: CYCLOBENZAPRINE 10 MG TAB PO ×3 (07:49→20:35)
[2018-05-03] MEDS: SENNA/DOCUSATE NA (8.6MG/50MG) TAB PO ×2 (07:50→20:33)
[2018-05-03] MEDS: ENALAPRIL 5 MG TAB PO ×2 (07:50→20:34)
[2018-05-03] MEDS: oxyCODONE (CR) 20 MG TAB [oxyCONTIN] PO ×2 (07:50→20:35)
[2018-05-03] MEDS: LORATADINE 10 MG TAB PO (07:51)
[2018-05-03] MEDS: METOPROLOL 25 MG TAB PO ×2 (07:51→20:35)
[2018-05-03] MEDS: DOCUSATE SODIUM 100 MG CAP PO ×2 (07:51→20:33)
[2018-05-03] MEDS: FERROUS SULFATE (EC) 325 MG TAB PO (07:51)
[2018-05-03] MEDS: MUPIROCIN 2% 22 GM OINT TOP ×2 (07:52→20:36)
[2018-05-03] MEDS: SODIUM HYPOCHLORITE 0.125% 473 ML BTL IRR (07:52)
[2018-05-03] MEDS: HYDROCODONE/APAP (10/325) TAB PO ×3 (09:16→23:18)
[2018-05-03] MEDS: MAGNESIUM HYDROXIDE 30ML CUP PO (17:24)
[2018-05-03] MEDS: BISACODYL 10 MG SUPP PR (17:56)
[2018-05-03] MEDS: ATORVASTATIN 10 MG TAB PO (20:33)
[2018-05-03] MEDS: DIPHENHYDRAMINE 25 MG CAP PO (22:13)
[2018-05-03] MEDS: LORAZEPAM 1 MG TAB PO (23:18)
[2018-05-04] MEDS: LORAZEPAM 1 MG TAB PO ×2 (04:51→22:56)
[2018-05-04] MEDS: HYDROCODONE/APAP (10/325) TAB PO ×3 (04:51→20:12)
[2018-05-04] MEDS: TRIMETHOPRIM/SULFAMETHOX (DS) TAB PO ×2 (08:27→20:11)
[2018-05-04] MEDS: FERROUS SULFATE (EC) 325 MG TAB PO (08:27)
[2018-05-04] MEDS: CYCLOBENZAPRINE 10 MG TAB PO ×3 (08:27→20:11)
[2018-05-04] MEDS: oxyCODONE (CR) 20 MG TAB [oxyCONTIN] PO ×2 (08:27→20:12)
[2018-05-04] MEDS: SENNA/DOCUSATE NA (8.6MG/50MG) TAB PO ×2 (08:27→20:12)
[2018-05-04] MEDS: HYDROmorphONE 4 MG TAB PO ×3 (08:27→18:37)
[2018-05-04] MEDS: LORATADINE 10 MG TAB PO (08:27)
[2018-05-04] MEDS: DOCUSATE SODIUM 100 MG CAP PO ×2 (08:27→20:11)
[2018-05-04] MEDS: METOPROLOL 25 MG TAB PO ×2 (08:28→20:12)
[2018-05-04] MEDS: ENALAPRIL 5 MG TAB PO ×2 (08:28→20:12)
[2018-05-04] MEDS: SODIUM HYPOCHLORITE 0.125% 473 ML BTL IRR (08:28)
[2018-05-04] MEDS: MUPIROCIN 2% 22 GM OINT TOP ×2 (08:28→20:13)
[2018-05-04] MEDS: ATORVASTATIN 10 MG TAB PO (20:11)
[2018-05-05] MEDS: HYDROCODONE/APAP (10/325) TAB PO ×6 (00:13→22:59)
[2018-05-05] MEDS: METOPROLOL 25 MG TAB PO ×3 (09:00→20:20)
[2018-05-05] MEDS: ENALAPRIL 5 MG TAB PO ×3 (09:00→20:21)
[2018-05-05] MEDS: MUPIROCIN 2% 22 GM OINT TOP ×2 (09:00→20:22)
[2018-05-05] MEDS: oxyCODONE (CR) 20 MG TAB [oxyCONTIN] PO ×2 (09:31→20:21)
[2018-05-05] MEDS: LORATADINE 10 MG TAB PO (09:31)
[2018-05-05] MEDS: DOCUSATE SODIUM 100 MG CAP PO ×2 (09:31→20:19)
[2018-05-05] MEDS: SENNA/DOCUSATE NA (8.6MG/50MG) TAB PO ×2 (09:31→20:20)
[2018-05-05] MEDS: CYCLOBENZAPRINE 10 MG TAB PO ×3 (09:31→20:20)
[2018-05-05] MEDS: TRIMETHOPRIM/SULFAMETHOX (DS) TAB PO ×2 (09:31→20:19)
[2018-05-05] MEDS: HYDROmorphONE 4 MG TAB PO ×2 (09:31→17:44)
[2018-05-05] MEDS: FERROUS SULFATE (EC) 325 MG TAB PO (09:31)
[2018-05-05] MEDS: SODIUM HYPOCHLORITE 0.125% 473 ML BTL IRR (09:32)
[2018-05-05] MEDS: ATORVASTATIN 10 MG TAB PO (20:20)
[2018-05-05] MEDS: LORAZEPAM 1 MG TAB PO (22:59)
[2018-05-06] MEDS: MAGNESIUM HYDROXIDE 30ML CUP PO (00:17)
[2018-05-06 05:42] LABS: ADD MAN DIFF? NO
[2018-05-06 05:46] LABS: BASOPHILS % 0.6 % (0.0-2.0); EOSINOPHILS # 0.5 10^3/ul (0.0-0.5); EOSINOPHILS % 7.3 % (0.0-7.0); HEMATOCRIT 31.1 % (42.0-52.0); HEMOGLOBIN 10.3 g/dl (14.0-18.0); LYMPHOCYTES # 2.2 10^3/ul (0.8-2.9); LYMPHOCYTES % 31.2 % (15.0-51.0); MEAN CORPUSCULAR HEMOGLOBIN 29.3 pg (29.0-33.0); MEAN CORPUSCULAR HGB CONC 33.1 g/dl (32.0-37.0); MEAN CORPUSCULAR VOLUME 88.4 fl (82.0-101.0); MEAN PLATELET VOLUME 8.9 fl (7.4-10.4); MONOCYTE # 0.6 10^3/ul (0.3-0.9); MONOCYTES % 8.3 % (0.0-11.0); NEUTROPHIL # 3.7 10^3/ul (1.6-7.5); NEUTROPHILS % 52.3 % (39.0-77.0); PLATELET COUNT 351 10^3/UL (140-415); RED BLOOD COUNT 3.52 10^6/ul (4.70-6.10); RED CELL DISTRIBUTION WIDTH 14.7 % (11.5-14.5)
[2018-05-06 05:46] LABS: WHITE BLOOD COUNT 7.1 10^3/ul (4.8-10.8)
[2018-05-06 06:22] LABS: ANION GAP 13 (8-16); BLOOD UREA NITROGEN 14 mg/dl (7-20); CALCIUM 8.8 mg/dl (8.4-10.2); CARBON DIOXIDE 26 mmol/L (21-31); CHLORIDE 104 mmol/L (97-110); CREATININE 0.87 mg/dl (0.61-1.24); GLUCOSE 95 mg/dl (70-220); POTASSIUM 4.2 mmol/L (3.5-5.1); SODIUM 139 mmol/L (135-144)
[2018-05-06] MEDS: CYCLOBENZAPRINE 10 MG TAB PO ×3 (08:29→20:22)
[2018-05-06] MEDS: LORATADINE 10 MG TAB PO (08:29)
[2018-05-06] MEDS: FERROUS SULFATE (EC) 325 MG TAB PO (08:29)
[2018-05-06] MEDS: ENALAPRIL 5 MG TAB PO ×2 (08:29→20:22)
[2018-05-06] MEDS: DOCUSATE SODIUM 100 MG CAP PO ×2 (08:30→20:23)
[2018-05-06] MEDS: SENNA/DOCUSATE NA (8.6MG/50MG) TAB PO ×2 (08:30→20:23)
[2018-05-06] MEDS: TRIMETHOPRIM/SULFAMETHOX (DS) TAB PO ×2 (08:30→20:22)
[2018-05-06] MEDS: METOPROLOL 25 MG TAB PO ×2 (08:30→20:23)
[2018-05-06] MEDS: oxyCODONE (CR) 20 MG TAB [oxyCONTIN] PO ×2 (09:12→20:22)
[2018-05-06] MEDS: SODIUM HYPOCHLORITE 0.125% 473 ML BTL IRR (09:12)
[2018-05-06] MEDS: MUPIROCIN 2% 22 GM OINT TOP ×2 (09:12→20:24)
[2018-05-06] MEDS: HYDROCODONE/APAP (10/325) TAB PO ×2 (14:00→18:27)
[2018-05-06] MEDS: ATORVASTATIN 10 MG TAB PO (20:22)
[2018-05-06] MEDS: LORAZEPAM 1 MG TAB PO (20:22)
[2018-05-07] MEDS: ZOLPIDEM 5 MG TAB PO ×2 (01:05→20:40)
[2018-05-07 06:04] LABS: ADD MAN DIFF? NO
[2018-05-07 06:16] LABS: BASOPHILS % 0.4 % (0.0-2.0); EOSINOPHILS # 0.6 10^3/ul (0.0-0.5); EOSINOPHILS % 7.6 % (0.0-7.0); HEMOGLOBIN 10.2 g/dl (14.0-18.0); LYMPHOCYTES # 2.5 10^3/ul (0.8-2.9); LYMPHOCYTES % 35.1 % (15.0-51.0); MEAN CORPUSCULAR HEMOGLOBIN 29.1 pg (29.0-33.0); MEAN CORPUSCULAR HGB CONC 31.9 g/dl (32.0-37.0); MEAN CORPUSCULAR VOLUME 91.4 fl (82.0-101.0); MEAN PLATELET VOLUME 9.2 fl (7.4-10.4); MONOCYTE # 0.6 10^3/ul (0.3-0.9); MONOCYTES % 8.3 % (0.0-11.0); NEUTROPHIL # 3.5 10^3/ul (1.6-7.5); NEUTROPHILS % 48.3 % (39.0-77.0); PLATELET COUNT 333 10^3/UL (140-415); RED CELL DISTRIBUTION WIDTH 15.1 % (11.5-14.5)
[2018-05-07 06:16] LABS: WHITE BLOOD COUNT 7.2 10^3/ul (4.8-10.8)
[2018-05-07 06:44] LABS: ANION GAP 13 (8-16); BLOOD UREA NITROGEN 14 mg/dl (7-20); CALCIUM 8.5 mg/dl (8.4-10.2); CARBON DIOXIDE 26 mmol/L (21-31); CHLORIDE 105 mmol/L (97-110); CREATININE 0.96 mg/dl (0.61-1.24); GLUCOSE 95 mg/dl (70-220); POTASSIUM 4.1 mmol/L (3.5-5.1); SODIUM 140 mmol/L (135-144)
[2018-05-07] MEDS: ENALAPRIL 5 MG TAB PO ×2 (09:15→20:00)
[2018-05-07] MEDS: TRIMETHOPRIM/SULFAMETHOX (DS) TAB PO ×2 (09:15→19:58)
[2018-05-07] MEDS: DOCUSATE SODIUM 100 MG CAP PO ×2 (09:16→19:58)
[2018-05-07] MEDS: SENNA/DOCUSATE NA (8.6MG/50MG) TAB PO ×2 (09:16→19:59)
[2018-05-07] MEDS: METOPROLOL 25 MG TAB PO ×2 (09:16→20:00)
[2018-05-07] MEDS: FERROUS SULFATE (EC) 325 MG TAB PO (09:16)
[2018-05-07] MEDS: CYCLOBENZAPRINE 10 MG TAB PO ×3 (09:17→19:59)
[2018-05-07] MEDS: oxyCODONE (CR) 20 MG TAB [oxyCONTIN] PO ×2 (09:17→19:59)
[2018-05-07] MEDS: LORATADINE 10 MG TAB PO (09:17)
[2018-05-07] MEDS: MUPIROCIN 2% 22 GM OINT TOP ×2 (09:18→20:03)
[2018-05-07] MEDS: SODIUM HYPOCHLORITE 0.125% 473 ML BTL IRR (09:18)
[2018-05-07] MEDS: MAGNESIUM HYDROXIDE 30ML CUP PO (12:38)
[2018-05-07] MEDS: BISACODYL 10 MG SUPP PR (13:37)
[2018-05-07] MEDS: HYDROmorphONE 4 MG TAB PO ×2 (14:50→19:59)
[2018-05-07] MEDS: HYDROCODONE/APAP (10/325) TAB PO ×2 (17:19→21:51)
[2018-05-07] MEDS: ATORVASTATIN 10 MG TAB PO (19:59)
[2018-05-08] MEDS: HYDROmorphONE 4 MG TAB PO ×4 (01:35→14:30)
[2018-05-08] MEDS: HYDROCODONE/APAP (10/325) TAB PO ×2 (05:12→16:05)
[2018-05-08 05:41] LABS: ANION GAP 8 (8-16); BLOOD UREA NITROGEN 12 mg/dl (7-20); CALCIUM 8.6 mg/dl (8.4-10.2); CARBON DIOXIDE 25 mmol/L (21-31); CHLORIDE 107 mmol/L (97-110); CREATININE 0.95 mg/dl (0.61-1.24); GLUCOSE 107 mg/dl (70-220); POTASSIUM 4.3 mmol/L (3.5-5.1); SODIUM 136 mmol/L (135-144)
[2018-05-08] MEDS: FERROUS SULFATE (EC) 325 MG TAB PO (08:07)
[2018-05-08] MEDS: ENALAPRIL 5 MG TAB PO ×2 (08:07→21:10)
[2018-05-08] MEDS: SENNA/DOCUSATE NA (8.6MG/50MG) TAB PO ×2 (08:07→21:07)
[2018-05-08] MEDS: oxyCODONE (CR) 20 MG TAB [oxyCONTIN] PO ×2 (08:08→21:10)
[2018-05-08] MEDS: DOCUSATE SODIUM 100 MG CAP PO ×2 (08:08→21:06)
[2018-05-08] MEDS: TRIMETHOPRIM/SULFAMETHOX (DS) TAB PO ×2 (08:08→21:07)
[2018-05-08] MEDS: METOPROLOL 25 MG TAB PO ×2 (08:08→21:11)
[2018-05-08] MEDS: LORATADINE 10 MG TAB PO (08:08)
[2018-05-08] MEDS: CYCLOBENZAPRINE 10 MG TAB PO ×3 (08:08→21:10)
[2018-05-08] MEDS: SODIUM HYPOCHLORITE 0.125% 473 ML BTL IRR (08:09)
[2018-05-08] MEDS: MUPIROCIN 2% 22 GM OINT TOP ×2 (08:09→21:12)
[2018-05-08] MEDS: ZOLPIDEM 5 MG TAB PO (21:05)
[2018-05-08] MEDS: ATORVASTATIN 10 MG TAB PO (21:06)
[2018-05-09] MEDS: LORAZEPAM 1 MG TAB PO (00:43)
[2018-05-09 05:47] LABS: ADD MAN DIFF? NO
[2018-05-09 05:48] LABS: WHITE BLOOD COUNT 5.9 10^3/ul (4.8-10.8)
[2018-05-09 05:48] LABS: BASOPHILS % 0.7 % (0.0-2.0); EOSINOPHILS # 0.5 10^3/ul (0.0-0.5); EOSINOPHILS % 7.6 % (0.0-7.0); HEMATOCRIT 30.2 % (42.0-52.0); HEMOGLOBIN 9.9 g/dl (14.0-18.0); LYMPHOCYTES # 2.3 10^3/ul (0.8-2.9); LYMPHOCYTES % 38.2 % (15.0-51.0); MEAN CORPUSCULAR HEMOGLOBIN 29.5 pg (29.0-33.0); MEAN CORPUSCULAR HGB CONC 32.8 g/dl (32.0-37.0); MEAN CORPUSCULAR VOLUME 89.9 fl (82.0-101.0); MEAN PLATELET VOLUME 9.3 fl (7.4-10.4); MONOCYTE # 0.6 10^3/ul (0.3-0.9); MONOCYTES % 9.6 % (0.0-11.0); NEUTROPHIL # 2.6 10^3/ul (1.6-7.5); NEUTROPHILS % 43.4 % (39.0-77.0); PLATELET COUNT 289 10^3/UL (140-415); RED BLOOD COUNT 3.36 10^6/ul (4.70-6.10); RED CELL DISTRIBUTION WIDTH 15.1 % (11.5-14.5)
[2018-05-09 06:42] LABS: ANION GAP 13 (8-16); BLOOD UREA NITROGEN 12 mg/dl (7-20); CALCIUM 8.5 mg/dl (8.4-10.2); CARBON DIOXIDE 24 mmol/L (21-31); CHLORIDE 106 mmol/L (97-110); CREATININE 0.86 mg/dl (0.61-1.24); GLUCOSE 87 mg/dl (70-220); POTASSIUM 4.2 mmol/L (3.5-5.1); SODIUM 139 mmol/L (135-144)
[2018-05-09] MEDS: ENALAPRIL 5 MG TAB PO (08:45)
[2018-05-09] MEDS: METOPROLOL 25 MG TAB PO (08:45)
[2018-05-09] MEDS: SENNA/DOCUSATE NA (8.6MG/50MG) TAB PO (08:45)
[2018-05-09] MEDS: CYCLOBENZAPRINE 10 MG TAB PO ×2 (08:45→12:58)
[2018-05-09] MEDS: DOCUSATE SODIUM 100 MG CAP PO (08:45)
[2018-05-09] MEDS: oxyCODONE (CR) 20 MG TAB [oxyCONTIN] PO (08:45)
[2018-05-09] MEDS: LORATADINE 10 MG TAB PO (08:45)
[2018-05-09] MEDS: FERROUS SULFATE (EC) 325 MG TAB PO (08:45)
[2018-05-09] MEDS: TRIMETHOPRIM/SULFAMETHOX (DS) TAB PO (08:45)
[2018-05-09] MEDS: MUPIROCIN 2% 22 GM OINT TOP (08:47)
[2018-05-09] MEDS: SODIUM HYPOCHLORITE 0.125% 473 ML BTL IRR (08:47)
[2018-05-09] MEDS: HYDROmorphONE 4 MG TAB PO ×2 (09:50→15:15)
[2018-05-09] MEDS: BISACODYL 10 MG SUPP PR (12:58)
[2018-05-09] MEDS: MAGNESIUM HYDROXIDE 30ML CUP PO (13:57)
== END 2018-05-09 19:06 | disposition home health service (06) | DRG 515 ==
LOC: REC 11:11 → MS1 04-26 07:28 → ICU 18:09 → TEL 04-19 18:27
PROC: 01N80ZZ Release Thoracic Nerve, Open Approach (ICD-10-PCS; principal; 2018-04-18 13:30)
PROC: 01NB0ZZ Release Lumbar Nerve, Open Approach (ICD-10-PCS; 2018-04-18 13:30)
DX: M47.15 Other spondylosis with myelopathy, thoracolumbar region (principal); A41.02 Sepsis due to Methicillin resistant Staphylococcus aureus; T80.211A Bloodstream infection due to central venous catheter, initial encounter; M47.16 Other spondylosis with myelopathy, lumbar region; G82.20 Paraplegia, unspecified; Z68.41 Body mass index [BMI] 40.0-44.9, adult; D62 Acute posthemorrhagic anemia; E66.9 Obesity, unspecified; I10 Essential (primary) hypertension; I25.10 Atherosclerotic heart disease of native coronary artery without angina pectoris; R73.03 Prediabetes; Q82.0 Hereditary lymphedema; Z87.891 Personal history of nicotine dependence; L23.1 Allergic contact dermatitis due to adhesives; B96.5 Pseudomonas (aeruginosa) (mallei) (pseudomallei) as the cause of diseases classified elsewhere; B96.1 Klebsiella pneumoniae [K. pneumoniae] as the cause of diseases classified elsewhere; L73.9 Follicular disorder, unspecified
CPT/HCPCS: 71045; 72100; 74018; 80048; 80053; 82565; 83605; 84520; 85014; 85018; 85025; 85610; 85730; 86850; 86900; 86901; 87040; 87070; 87081; 88304; 88311; 93970; 97110; 97163; 97530; 97542